=== PATIENT | female | born 1975 ===

== ENCOUNTER 2017-11-02 06:28 | Inpatient (IN) | payer MEDICAID ==
[2017-11-02 07:47] VITALS: BMI 22.6
[2017-11-02 09:07] LABS: BASO % 0.8 % (0.0-2.0); EOS % 0.6 % (0.0-4.0); HEMOGLOBIN 12.6 g/dL (12.0-16.0); LYMPH # 1.5 K/uL (1.0-4.3); LYMPH % 25.9 % (20.0-40.0); MEAN CELL VOLUME 91.7 fl (81.0-99.0); MEAN CORPUSCULAR HEMOGLOBIN 31.4 pg (27.0-31.0); MEAN CORPUSCULAR HGB CONC 34.2 g/dL (33.0-37.0); MEAN PLATELET VOLUME 10.7 fl (7.2-11.7); MONO # 0.3 K/uL (0.0-0.8); MONO % 5.7 % (0.0-10.0); NRBC % 0.2 % (0.0-0.0); RED CELL DISTRIBUTION WIDTH 15.3 % (11.5-14.5); WHITE BLOOD COUNT 5.9 K/uL (4.8-10.8)
[2017-11-02] MEDS ORDERED: Oxytocin 30 UNITS in Sodium Chloride 0.9% 500 ML IV ONE (12:46)
[2017-11-02] MEDS ORDERED: Lactated Ringer's 1,000 ML IV SCH ×2 (13:00→13:45)
--- NOTE | 2017-11-02 13:15 | OBHP ---
Datetime: 11/02/2017 13:09 Presentation-Admit: Vertex FHR - Baseline A Provider: 140 Amniotic Fluid Color, Provider: Clear Membranes, Provider: Ruptured Contraction Comments Provider: 3-5m NICHD Variability Prov Fetus A: Moderate 6-25bpm NICHD Accel Fetus A IP Provider: 15X15 FHR Category Provider Fetus A: Category I NICHD Decel Fetus A IP Provider: None Dilatation, Provider: 4 Effacement, Provider: 80 Station, Provider: -2 Datetime: 11/02/2017 07:32 IP Adm Impression: Term, intrauterine ; No Active Labor; Intact Membranes IP Admit Plan: Observation/Evaluation Admit Comment, IP Provider: LMP: 02/09/2017 PNP: Dr. Elizabeth First 41 yo at 38 weeks based on LMP 02/09/2017 is presenting with complaints of vaginal bleeding t hat began at 6am today. She states she went to the bathroom and saw some blood while urinating. Patie nt reports using 1 pad. Patient denied any recent sexual activity, dysuria or loss of fluid. She also reports + contractions, 5/10 every 5-6 minutes. movement appreciated. OBGYNhx: x 3, no complications 1 miscarriage PMH: Gestational Diabetes, diet controlled Famhx: neg Sochx: no Tobacco, EtOH or drugs Allergies: none Meds: prenatals ROS: denies headache, blurred vision, cp or sob Labs: O+, Antibody neg, Quant neg, Labs unremarkable Vitals: 106/66 spo2: 98% pulse 68 Gen: well appearing female Cardio: s1s2, no murmurs Resp: clear to auscultation B/l Abd: BS+ FHR: NST reactive, mod variability [place]: occasional Ext: calves nontender A/P: 41 yo at 38 weeks 1. Early labor: admit to unit with vag delivery protocol; continue FHR monitoring Patient seen and examed with Dr. Isaias Joseph PGY-1 OB Hospitalist on-call - Pt seen and examined with PGY1 agree with note. WIll observe labor pro erica...discussion about pain management, labor, medications with its risks/complications, delivery a nd . Extremities - PN: Normal Abdomen - PN: Normal Lungs - PN: Normal Heart - PN: Normal General - PN: Normal Gestation - Est Wks by US: 38.0 IP Hx Assessment: The History has been Reviewed and is Current EGA AdmitDate IP: 38.0 Vital Signs Provider: Reviewed; Within Normal Limits IP Chief Complaint: Uterine contractions; Vaginal bleeding Genitourinary Exam: Normal
--- NOTE | 2017-11-02 13:19 | OBPN ---
Datetime: 11/02/2017 13:09 IP Progress Impression: Reassuring heart rate IP Informed Consent Obtain: Vaginal Delivery; Risks, Benefits and Alternatives Discussed IP Procedures: Artificial ROM IP Progress Plan: Augmentation; Anticipate Vaginal Delivery Membranes, Provider: Ruptured Amniotic Fluid Color, Provider: Clear Contraction Comments Provider: 3-5m FHR - Baseline A Provider: 140 Presentation-Admit: Vertex IP Progress Note Comment: She feels CTX but does not want pain meds. A: Latent phase of labor GDMA1 PLAN: DIsucssion with pt...AROM and start Pitocin augmentation NICHD Accel Fetus A IP Provider: 15X15 FHR Category Provider Fetus A: Category I NICHD Variability Prov Fetus A: Moderate 6-25bpm Dilatation, Provider: 4 Effacement, Provider: 80 Station, Provider: -2 NICHD Decel Fetus A IP Provider: None Datetime: 11/02/2017 07:32 Gestation - Est Wks by US: 38.0 Vital Signs Provider: Reviewed; Within Normal Limits
[2017-11-02] MEDS ORDERED: Fentanyl/Bupivacaine HCl 0 ML EPI ONE (14:21)
[2017-11-02] MEDS ORDERED: Benzocaine/Menthol SPRAY TOP PRN (15:30)
[2017-11-02] MEDS ORDERED: Oxycodone/Acetaminophen 5/325 mg Tab PO PRN ×2 (15:30→18:54)
--- NOTE | 2017-11-02 15:53 | OBDS ---
DELIVERY PERSONNEL Delivery Doctor: Kim Esparza DO Final Assembly Worker: Missy Adame RN MATERNAL INFORMATION Delivery Anesthesia: Local Medications in Delivery: pitocin after placenta Estimated Blood Loss (ml): 200 Placenta Cultured: No Maternal Complications: None Provider Comments: of live male over intact perineum, 3300g in cephalic presentation, fo llowed by shoulders and rest of . placed on mother's chest, mouth and nose suctioned, co rd clamped and cut by father. Cord blood obtained, placenta delivered spontaneousl. ,EBL= 200ml, Mom and stable, both tolerated procedure well OB Hospitalist note: Personally, I attended and did repair. MELLNDO LABOR SUMMARY EDC: 11/16/2017 00:00 No. Babies in Womb: 1 Attempted: No Labor Anesthesia: None LABOR INFORMATION Onset of Labor: 11/02/2017 06:00 Complete Dilatation: 11/02/2017 14:50 Group B Beta Strep: Negative MEMBRANES Membranes Rupture Method: Artificial Rupture of Membranes: 11/02/2017 13:10 Length of Rupture (hrs): 1.88 Amniotic Fluid Color: Clear Amniotic Fluid Amount: Moderate Amniotic Fluid Odor: Normal STAGES OF LABOR Stage 1 hrs: 8 Stage 1 min: 50 Stage 2 hrs: 0 Stage 2 min: 13 Stage 3 hrs: 0 Stage 3 min: 12 Total Time in Labor hrs: 9 Total Time in Labor min: 15 VAGINAL DELIVERY Episiotomy: None Laceration Extension: Second Degree Laceration Type: Perineal Other Laceration: none Laceration Repair: Yes Laceration Repair Note: Second degree laceration repaired with 2-0 vicryl rapide Initial Vag Sponge Count: 5 Final Vag Sponge Count: 5 Initial Vag Sharps Count: 2 Final Vag Sharps Count: 2 Sharps Count Correct: Yes BABY A INFORMATION Delivery Date/Time: 11/02/2017 15:03 Method of Delivery: Vaginal Born in Route : Yes : N/A SHOULDER DYSTOCIA BABY A Infant Delivery Date/Time: 11/02/2017 15:03 PRESENTATION/POSITION BABY A Presentation: Cephalic PLACENTA INFORMATION BABY A Placenta Delivery Time : 11/02/2017 15:15 Placenta Method of Delivery: Spontaneous Placenta Status: Delivered SCORES BABY A Heart Rate 1 min: >100 bpm Resp Effort 1 min: Good Cry Reflex Irritability 1 min: Cough or Sneeze or Pulls Away Muscle Tone 1 min: Active Motion Color 1 min: Body [place], Extremities Blue Resuscitation Effort 1 min: Tactile Stimulation SCORE 1 MIN: 9 Heart Rate 5 min: >100 bpm Resp Effort 5 min: Good Cry Reflex Irritability 5 min: Cough or Sneeze or Pulls Away Muscle Tone 5 min: Active Motion Color 5 min: Body [place], Extremities Blue SCORE 5 MIN: 9 Heart Rate 10 min: >100 bpm Resp Effort 10 min: Good Cry Reflex Irritability 10 min: Cough or Sneeze or Pulls Away Muscle Tone 10 min: Active Motion Color 10 min: Completely [place] SCORE 10 MIN: 10 INFORMATION BABY A Gestational Age at Delivery: 38.0 Gestational Status: Term Outcome : Liveborn Infant Condition : Stable Infant Sex: Male IDENTIFICATION/MEDS BABY A ID Band Number: [id number] ID Band Location: Left Leg; Left Arm WEIGHT/LENGTH BABY A Infant Birthweight (gms): 3300 Infant Weight (lb): 7 Infant Weight (oz): 4 Infant Length Inches: 21.00 Length cms: 53.3 CORD INFORMATION BABY A No. Cord Vessels: 3 Nuchal Cord : N/A Nuchal Cord Other: no True Knot: no Infant Cord pH Baby Arterial: no Cord pH Baby Venous: no Cord Blood Taken: Yes Banking/Donate Info: none Suction: Mouth; Nose ASSESSMENT BABY A Infant Respirations: Appears Normal Band [place]/ALS Called : Yes Care By: dr mari / missy adame Transferred To: Remains with Mother
[2017-11-02] MEDS: Benzocaine/Menthol SPRAY TOP PRN (23:02)
[2017-11-03 06:15] LABS: BASO % 0.3 % (0.0-2.0); EOS % 0.1 % (0.0-4.0); HEMOGLOBIN 10.4 g/dL (12.0-16.0); LYMPH # 1.8 K/uL (1.0-4.3); LYMPH % 13.7 % (20.0-40.0); MEAN CELL VOLUME 92.7 fl (81.0-99.0); MEAN CORPUSCULAR HEMOGLOBIN 31.3 pg (27.0-31.0); MEAN CORPUSCULAR HGB CONC 33.8 g/dL (33.0-37.0); MONO # 0.5 K/uL (0.0-0.8); MONO % 4.1 % (0.0-10.0); NEUT # 10.9 K/uL (1.8-7.0); NEUT % 81.8 % (50.0-75.0); RBC 3.33 Mil/uL (3.80-5.20); WHITE BLOOD COUNT 13.3 K/uL (4.8-10.8)
--- NOTE | 2017-11-03 11:13 | OBPPN ---
Datetime: 11/03/2017 10:08 PP Pain Prov: Within normal limits PP Nausea Prov: Denies PP Flatus Prov: No PP BM Prov: Yes PP Heart Prov: Normal PP Lungs Prov: Normal PP Abdomen/Uterus Prov: Normal PP Lochia Prov: Normal PP Extremities Prov: Normal PP C/S Incision Prov: Not Applicable PP Impression Prov: Normal progression PP Plan Prov: Continue present management PP Progress Note Prov: S: Pt is a 41 yo 38wk s/p on 11/02/17 PPD 1. Seen and examined a t bedside this am. Patient denies any significant overnight events. Reports pain is controlled with pain medicine. OOB/Ambulation well without dizziness. Breast/ bottle feeding well. Tolerating regular diet. Lochia is similar to menses. Voiding freely with no blood noted, Patient has had a bowel movem ent, but not is passing gas per rectum. Denies fever/chills, diarrhea,nausea/vomiting, CP/SOB , Light headedness. O: BP:92/53, HR:67, T:98.F CBC-10.4/30.8, blood type: O+, rubella: Immune PHYSICAL EXAM: GEN: AAOx3, Resting comfortably in bed, NAD HEENT: NCAT, White sclera, pink conjunctiva, oral mucosa moist. LUNGS: CTA B/L, no wheezing, rhonchi, or rales, B/L chest rise CVS: RRR, S1, S2, No murmurs, rubs, gallops ABD: ND, +BS, firm fundus @ umbilical level. Soft, appropriate TTP EXT: no edema, negative Leidy's sign, calves non tender NEURO/Psych: no gross focal deficit, preserved affect and mood. A/P 41 y/o 38 wks post , had a on 11/02/17 @ 15:03. Pt afebrile, tolerating pain wit h medication, tolerating regular diet, adequate urine output. Encouraged breast feeding and ambulation Ibuprofen 600mg 1 tab po Q 6h prn mild pain PNV 1 tab po daily Post discharge contraception-OCP F/U 4-6 weeks for post- visit at the [facility] Crystal Mckoy M.D. PGY-1 Patient was seen and case discussed with Dr. Mendoza Patient seen Vital Signs Provider PP: Reviewed; Within Normal Limits
[2017-11-04] MEDS: Benzocaine/Menthol SPRAY TOP PRN (08:54)
--- NOTE | 2017-11-04 16:39 | OBPPN ---
Datetime: 11/04/2017 08:06 PP Pain Prov: Within normal limits PP Nausea Prov: Denies PP Flatus Prov: No PP BM Prov: Yes PP Heart Prov: Normal PP Lungs Prov: Normal PP Abdomen/Uterus Prov: Normal PP Lochia Prov: Normal PP Extremities Prov: Normal PP C/S Incision Prov: Not Applicable PP Progress Prov: Normal PP Impression Prov: Normal progression PP Plan Prov: Continue present management PP Progress Note Prov: S: Pt is a 41 yo 38wk s/p on 11/02/17 PPD 2. Seen and examined at bedside this am. Patient denies any significant overnight events. Reports pain is controlled with p ain medicine. OOB/Ambulation well without dizziness. Breast/ bottle feeding well. Tolerating regular diet. Lochia is similar to menses. Voiding freely with no blood noted, Patient has had a bowel moveme nt, but not is passing gas per rectum. Denies fever/chills, diarrhea, nausea/vomiting, CP/SOB , light headedness. O: BP:98/58, HR:63, T:98.1F CBC-10.4/30.8, blood type: O+, rubella: Immune PHYSICAL EXAM: GEN: AAOx3, Resting comfortably in bed, NAD HEENT: NCAT, White sclera, pink conjunctiva, oral mucosa moist. LUNGS: CTA B/L, no wheezing, rhonchi, or rales, B/L chest rise CVS: RRR, S1, S2, No murmurs, rubs, gallops ABD: ND, +BS, firm fundus @ umbilical level. Soft, appropriate TTP EXT: no edema, negative Leidy's sign, calves non tender NEURO/Psych: no gross focal deficit, preserved affect and mood. A/P 41 y/o 38 wks post , had a on 11/02/17 @ 15:03. Pt afebrile, tolerating pain wit h medication, tolerating regular diet, adequate urine output. Encouraged breast feeding and ambulation Ibuprofen 600mg 1 tab po Q 6h prn mild pain PNV 1 tab po daily Post discharge contraception-OCP F/U 4-6 weeks for post- visit, will check 2 hr GTT at this visit for GDMA2 the [facility] Crystal Mckoy M.D. PGY-1 Patient was seen and case discussed with Dr. Mendoza Patient seen and examined by me this am. Agree with above resident note. Ambulation and breast fee ding encouraged. Patient to continue pain meds as needed. Patient for discharge home today with follo w up in the clinic in 6 weeks. --Dr. Snow IP PP Procedures: None Vital Signs Provider PP: Reviewed; Within Normal Limits
--- NOTE | 2017-11-04 16:39 | OBDCSUM ---
Datetime: 11/04/2017 07:13 Discharged to, Provider: Home Follow up at, Provider: Dr. Elizabeth Disch Instr Activity: May be up to bathroom; May be up for meals; May Shower Disch Instr Diet: Regular Discharge Instructions, Provider: Routine instructions given Discharge Diagnosis, Provider: Term Delivered Discharge Time: 11/04/2017 12:00 Follow up in weeks, Provider: in 6 weeks Disch Referrals: None Disch Activity Restrictions: Minimize walking; Minimize stair-climbing; Nothing in vagina - Intercou rse, tampons, douche Discharge Comment, Provider: 1. Continue attempts at . 2. Ibuprofen as needed for moderate pain. 3. Continue walking as much as tolerated. 4. Please plan follow up visit in 3-7 days with verifier operator. 5. Please see your doctor in 6 weeks. 6. No heavy lifting or anything in the vagina for 6 weeks. 7. Please avoid stairs if possible. 8. If you develop severe or worsening pain, please go to the ED. Contraception after Delivery: Control Pill/Patch
[2017-11-04 19:27] VITALS: BP 95/56; PULSE 88; RESP 20; TEMP 98.2; O2SAT 98
== END 2017-11-04 13:50 | disposition home or self-care (01) | DRG 373 ==
LOC: H.EROB2 06:28 → H.EROB 07:47 → H.L&D 12:07 → H.OB/GYN 18:00
PROVIDERS: ADMIT Obstetrics & Gynecology; ATTEND Obstetrics & Gynecology
PROC: 10E0XZZ Delivery of Products of Conception, External Approach (ICD-10-PCS; principal; 2017-11-02)
PROC: 0KQM0ZZ Repair Perineum Muscle, Open Approach (ICD-10-PCS; 2017-11-02)
PROC: 10907ZC Drainage of Amniotic Fluid, Therapeutic from Products of Conception, Via Natural or Artificial Opening (ICD-10-PCS; 2017-11-02)
PROC: 4A1HXCZ Monitoring of Products of Conception, Cardiac Rate, External Approach (ICD-10-PCS; 2017-11-02)
DX: O70.1 Second degree perineal laceration during delivery (principal); Z37.0 Single live birth; Z3A.38 38 weeks gestation of pregnancy; O09.523 Supervision of elderly multigravida, third trimester; Z86.32 Personal history of gestational diabetes